=== PATIENT | female | born 1990 | race African-American/Black ===

== ENCOUNTER 2016-05-19 13:16 | Emergency (ER) | payer MEDICAID ==
[~2016-05-19] VITALS: Ht 152.4 cm; Wt 65.0 kg
[~2016-05-19 13:16] MED LIST: AZIT1 PO; MACR100C PO; PREN1CAP20 PO; PROM25TA5 PO
[2016-05-19 13:19] VITALS: BP 181/98; PULSE 62; RESP 17; TEMP 98.1; O2SAT 98
[2016-05-19] MEDS ORDERED: ORPHENADRINE INJ 60 MG/2 ML AMP IM ONE (13:45)
[2016-05-19] MEDS ORDERED: KETOROLAC TROMETHAMINE 60 MG/2 ML (IM) VIAL IM ONE (13:45)
[2016-05-19] MEDS ORDERED: CYCL1TAB29 PO (13:46)
[2016-05-19] MEDS ORDERED: DICL50TA PO (13:46)
--- NOTE | 2016-05-19 13:47 | PD ---
HPI Chief Complaint: Back/ Neck Pain or Injury Time Seen by Provider: 13:42 Travel History International Travel<30 days: No Contact w/Intl Traveler<30days: No Traveled to known affect area: No History of Present Illness HPI 25-year-old female presents to the emergency department for evaluation of thoracic back pain that started yesterday. She states she has a history of scoliosis and has intermittent back pain. She states this consistent with her typical back pain. Patient denies any fevers or chills. She denies any chest pain or shortness of breath. She denies any abdominal pain. No nausea or vomiting. She denies any weakness or syncope. Patient denies any chance of reporting her recent May 10, 2016. Patient is not breast- feeding. Patient denies any headache. Patient's blood pressure is elevated in the emergency department, 181/98. She denies any history of hypertension. She states that she had a normal vaginal delivery at [address] Whiteside. She had no complications other than gestational diabetes. PFSH Past Medical History Diabetes: Yes Patient Takes Glucophage: No Diminished Hearing: No Musculoskeletal: Yes (SCOLIOSIS) ?: Not LMP: RECENT DELIVERY : 3 Para: 2 Social History Alcohol Use: No Tobacco Use: No Substance Use: No Allergies-Medications (Allergen,Severity, Reaction): Coded Allergies: No Known Allergies (Unverified , 05/19/16) Reported Meds & Prescriptions Reported Meds & Active Scripts Active Flexeril (Cyclobenzaprine HCl) 10 Mg Tab 10 Mg PO TID PRN Diclofenac Potassium 50 Mg Tab 50 Mg PO TID PRN Review of Systems Except as stated in HPI: all other systems reviewed are Neg Physical Exam Narrative GENERAL: Well-developed well-nourished female patient, ambulatory. Afebrile. SKIN: Warm and dry. HEAD: Normocephalic. Atraumatic. EYES: No scleral icterus. No injection or drainage. NECK: Supple, trachea midline. No JVD or lymphadenopathy. CARDIOVASCULAR: Regular rate and rhythm without murmurs, gallops, or rubs. RESPIRATORY: Breath sounds equal bilaterally. No accessory muscle use. Lungs sounds are clear to auscultation. GASTROINTESTINAL: Abdomen soft, non-tender, nondistended. MUSCULOSKELETAL: No cyanosis, or edema. Bilateral upper and lower extremity strength 5/5. All extremities are neurovascularly intact. BACK: No obvious deformity. No CVA tenderness. Patient has tenderness over upper thoracic spine. Data Data Last Documented VS Vital Signs Date Time Temp Pulse Resp B/P Pulse Ox O2 Delivery O2 Flow Rate FiO2 05/19/16 15:31 195/110 05/19/16 13:19 98.1 62 17 98 Orders Ketorolac Inj (Toradol Inj) (05/19/16 13:45) Orphenadrine Inj (Norflex Inj) (05/19/16 13:45) Iv Access Insert/Monitor (05/19/16 14:05) Complete Blood Count With Diff (05/19/16 14:05) Basic Metabolic Panel (Bmp) (05/19/16 14:05) Urinalysis - C+S If Indicated (05/19/16 14:05) Ketorolac Inj (Toradol Inj) (05/19/16 14:15) Hepatic Functional Panel (05/19/16 15:32) Labs Laboratory Tests Test 05/19/16 14:25 White Blood Count 6.5 TH/MM3 Red Blood Count 4.36 MIL/MM3 Hemoglobin 11.2 GM/DL Hematocrit 34.9 % Mean Corpuscular Volume 80.2 FL Mean Corpuscular Hemoglobin 25.8 PG Mean Corpuscular Hemoglobin 32.2 % Concent Red Cell Distribution Width 14.8 % Platelet Count 354 TH/MM3 Mean Platelet Volume 9.0 FL Neutrophils (%) (Auto) 46.5 % Lymphocytes (%) (Auto) 44.6 % Monocytes (%) (Auto) 5.4 % Eosinophils (%) (Auto) 3.1 % Basophils (%) (Auto) 0.4 % Neutrophils # (Auto) 3.0 TH/MM3 Lymphocytes # (Auto) 2.9 TH/MM3 Monocytes # (Auto) 0.4 TH/MM3 Eosinophils # (Auto) 0.2 TH/MM3 Basophils # (Auto) 0.0 TH/MM3 CBC Comment DIFF FINAL Differential Comment Urine Color YELLOW Urine Turbidity HAZY Urine pH 7.5 Urine Specific [place] 1.015 Urine Protein NEG mg/dL Urine Glucose (UA) NEG mg/dL Urine Ketones NEG mg/dL Urine Occult Blood MOD Urine Nitrite NEG Urine Bilirubin NEG Urine Urobilinogen 2.0 MG/DL Urine Leukocyte Esterase NEG Urine RBC 18 /hpf Urine WBC 1 /hpf Urine Squamous Epithelial <1 /hpf Cells Urine Amorphous Sediment OCC Microscopic Urinalysis Comment CULT NOT INDICATED Sodium Level 141 MEQ/L Potassium Level 4.3 MEQ/L Chloride Level 104 MEQ/L Carbon Dioxide Level 28.5 MEQ/L Anion Gap 9 MEQ/L Blood Urea Nitrogen 8 MG/DL Creatinine 0.73 MG/DL Estimat Glomerular Filtration 119 ML/MIN Rate Random Glucose 80 MG/DL Calcium Level 9.4 MG/DL MDM Medical Decision Making Medical Screen Exam Complete: Yes Emergency Medical Condition: Yes Medical Record Reviewed: Yes Differential Diagnosis Scoliosis versus chronic back pain versus muscle strain versus muscle spasm Narrative Course 25-year-old female presents to the emergency department for evaluation of upper back pain. She does report having a baby lifting the baby often. She states this is her typical back pain associated with her scoliosis. She denies any new symptoms. Patient's blood pressures elevated the emergency department. She denies any associated complaints. However, this is concerning considering she just gave on May 10, 2016. Her robot programmer is Dr. Whiteside. I consulted my attending physician, Dr. Baker, who recommends lab work , UA, consult her robot programmer. The patient is agreeable to this. CBC shows no acute abnormality, hemoglobin 11.2, hematocrit 34.9. BMP shows no acute abnormality. UA shows moderate occult blood, no protein. I attempted to contact this patient's robot programmer, Dr. Whiteside, but I am unable to get ahold of him. I contacted our OB hospitalist at [phone], Dr. Portillo, and explained situation to him. He states that the patient needs to be transferred to the OB ED for further care and evaluation. LFTs are added on and I called lab to let them know. The patient was transferred to the OB ED. Report is given by the nurse. Madie Aguilar May 19, 2016 13:47
[2016-05-19] MEDS ORDERED: KETOROLAC TROMETHAMINE 30 MG/ML (IVP) VIAL IV PUSH ONE (14:15)
[2016-05-19 14:32] LABS: BASOPHIL % 0.4 % (0.0-2.0); EOSINOPHIL # 0.2 TH/MM3 (0-0.4); EOSINOPHIL % 3.1 % (0.0-4.0); HEMATOCRIT 34.9 % (35.0-46.0); HEMO FLAGS DIFF FINAL; LYMPH % 44.6 % (9.0-44.0); LYMPHOCYTE # 2.9 TH/MM3 (1.0-4.8); MEAN CELL VOLUME 80.2 FL (80.0-100.0); MEAN CORPUSCULAR HEMOGLOBIN 25.8 PG (27.0-34.0); MEAN CORPUSCULAR HGB CONC 32.2 % (32.0-36.0); MONO % 5.4 % (0.0-8.0); NEUT % 46.5 % (16.0-70.0); PLATELET COUNT 354 TH/MM3 (150-450); RED BLOOD COUNT 4.36 MIL/MM3 (4.00-5.30); RED CELL DISTRIBUTION WIDTH 14.8 % (11.6-17.2); WHITE BLOOD COUNT 6.5 TH/MM3 (4.0-11.0)
[2016-05-19 14:42] LABS: BLOOD, URINE MOD (NEG); COMMENT (UR) CULT NOT INDICATED; CULTURE IF INDICATED CULT NOT INDICATED; GLUCOSE,URINE NEG (NEG); KETONE, URINE NEG (NEG); NITRITE,URINE NEG (NEG); PH, URINE 7.5 (5.0-8.5); SQUAMOUS EPITHELIAL CELL URINE <1 /hpf (0-5); URINE COLOR YELLOW (YELLW/STRAW)
[2016-05-19 14:53] LABS: BICARBONATE 28.5 MEQ/L (21.0-32.0); POTASSIUM 4.3 MEQ/L (3.5-5.1)
[2016-05-19 15:31] VITALS: BP 195/110
[2016-05-19 15:56] LABS: INDIRECT BILIRUBIN 0.1 MG/DL (0.0-0.8); TOTAL BILIRUBIN ADULT 0.2 MG/DL (0.2-1.0)
== END 2016-05-19 15:55 | disposition home or self-care (01) ==
LOC: NEPB 13:16
DX: O90.89 Other complications of the puerperium, not elsewhere classified (principal); M54.6 Pain in thoracic spine; R03.0 Elevated blood-pressure reading, without diagnosis of hypertension; M41.9 Scoliosis, unspecified
CPT/HCPCS: 80048; 80076; 81001; 85025; 96372; 96374; 99283; J1885; J2360

== ENCOUNTER 2016-07-18 18:21 | Emergency (ER) | payer OTHER, MEDICAID ==
[~2016-07-18] VITALS: Ht 152.4 cm; Wt 50.0 kg
[2016-07-18 18:22] VITALS: BP 135/80; PULSE 85; RESP 16; TEMP 97.9; O2SAT 99
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
[2016-07-18] MEDS ORDERED: CYCL5TAB PO (18:41)
== END 2016-07-18 19:06 | disposition home or self-care (01) ==
LOC: NEPK 18:21
DX: S16.1XXA Strain of muscle, fascia and tendon at neck level, initial encounter (principal); V49.40XA Driver injured in collision with unspecified motor vehicles in traffic accident, initial encounter; Y92.481 Parking lot as the place of occurrence of the external cause
CPT/HCPCS: 99283

== ENCOUNTER 2016-09-22 13:51 | Emergency (ER) | payer MEDICAID, OTHER ==
[~2016-09-22] VITALS: Ht 167.6 cm; Wt 58.2 kg
[~2016-09-22 13:51] MED LIST changes: -AZIT1 PO; +CYCL5TAB PO; -MACR100C PO; -PREN1CAP20 PO; -PROM25TA5 PO
[2016-09-22 13:52] VITALS: BP 130/76; PULSE 67; RESP 18; TEMP 99.3; O2SAT 100
--- NOTE | 2016-09-22 14:32 | PD ---
Physical Exam Time Seen by Provider: 14:30 Narrative 32 y/o female with back pain. She has been going to physical therapy and reports that it is worse after physical therapy yesterday. Vital signs reviewed. Seen at triage desk. Awaiting bed placement. Data Data Last Documented VS Vital Signs Date Time Temp Pulse Resp B/P Pulse Ox O2 Delivery O2 Flow Rate FiO2 09/22/16 13:52 99.3 67 18 130/76 100 Room Air [facility] Medical Record Reviewed: Yes Supervised Visit with PAIGE: Baldev Byers Sep 22, 2016 14:32
[2016-09-22] MEDS ORDERED: ORPHENADRINE INJ 60 MG/2 ML AMP IM ONE (16:00)
[2016-09-22] MEDS ORDERED: KETOROLAC TROMETHAMINE 60 MG/2 ML (IM) VIAL IM ONE (16:00)
[2016-09-22] MEDS ORDERED: ROBA500T PO (16:00)
[2016-09-22] MEDS ORDERED: IBUP-232 PO (16:00)
--- NOTE | 2016-09-22 16:00 | PD ---
HPI Chief Complaint: Back/ Neck Pain or Injury Time Seen by Provider: 15:58 Travel History International Travel<30 days: No Contact w/Intl Traveler<30days: No Traveled to known affect area: No History of Present Illness HPI 25-year-old female with history of scoliosis presents to [facility] department for evaluation back pain. Patient states she started physical therapy yesterday. Today she has been tight and sore. Denies any injury. No focal deficits weakness. No urinary symptoms. No fever chills. No other symptoms to report. PFSH Past Medical History Diabetes: Yes Diminished Hearing: No Musculoskeletal: Yes (SCOLIOSIS) ?: Not LMP: AUGUST 2016 : 3 Para: 2 Social History Alcohol Use: No Tobacco Use: No Substance Use: No Allergies-Medications (Allergen,Severity, Reaction): Coded Allergies: No Known Allergies (Unverified , 09/22/16) Reported Meds & Prescriptions Reported Meds & Active Scripts Active Robaxin (Methocarbamol) 500 Mg Tab 500 Mg PO QID PRN Ibuprofen 600 Mg Tab 600 Mg PO Q8HR PRN Flexeril (Cyclobenzaprine HCl) 5 Mg Tab 5 Mg PO TID Review of Systems Except as stated in HPI: all other systems reviewed are Neg Physical Exam Narrative GENERAL: Well-nourished, well-developed female patient, ambulatory and in no acute distress SKIN: Focused skin assessment warm/dry. HEAD: Normocephalic. EYES: No scleral icterus. No injection or drainage. NECK: Supple, trachea midline. No JVD or lymphadenopathy. CARDIOVASCULAR: Regular rate and rhythm without murmurs, gallops, or rubs. RESPIRATORY: Breath sounds equal bilaterally. No accessory muscle use. MUSCULOSKELETAL: No cyanosis, or edema. BACK: No midline spinal tenderness. Musculoskeletal tenderness to palpation along the lateral aspect of the back. No CVA tenderness. Data Data Last Documented VS Vital Signs Date Time Temp Pulse Resp B/P Pulse Ox O2 Delivery O2 Flow Rate FiO2 09/22/16 13:52 99.3 67 18 130/76 100 Room Air Orders Ketorolac Inj (Toradol Inj) (09/22/16 16:00) Orphenadrine Inj (Norflex Inj) (09/22/16 16:00) MDM Medical Decision Making Medical Screen Exam Complete: Yes Emergency Medical Condition: Yes Medical Record Reviewed: Yes Differential Diagnosis Muscle strain versus discogenic pain versus radiculopathy versus spasm Narrative Course 25 year female presents versus prominent for evaluation of back pain, exacerbated today after starting physical therapy yesterday. Patient appears without distress. She has no focal deficits or weakness. She'll be treated for her musculoskeletal pain. She is encouraged to ice and/or use warm ice. She agrees return immediately with any acute worsening of symptoms. Diagnosis Primary Impression: Back pain Qualified Code: M54.5 - Bilateral low back pain without sciatica, unspecified chronicity Referrals: Primary Care Physician Patient Instructions: Back Pain (ED), General Instructions Additional Instructions: Ice and/or warm ice may help to alleviate symptoms Continue with physical therapy as already instructed Return immediately with any acute worsening of symptoms Med/Other Pt SpecificInfo: Prescription(s) given Scripts Methocarbamol (Robaxin)500 Mg [id number] Mg PO QID PRN (MUSCLE SPASM) #20 TAB Ref 0 Prov:Trisha Beltran 09/22/16 Ibuprofen 600 Mg [id number] Mg PO Q8HR PRN (PAIN) #30 TAB Ref 0 Prov:Trisha Beltran 09/22/16 Disposition: 01 DISCHARGE HOME Condition: Stable Trisha Beltran Sep 22, 2016 16:00
== END 2016-09-22 16:21 | disposition home or self-care (01) ==
LOC: NEPK 13:51
DX: M54.9 Dorsalgia, unspecified (principal); E11.9 Type 2 diabetes mellitus without complications; M41.9 Scoliosis, unspecified; Z79.899 Other long term (current) drug therapy
CPT/HCPCS: 96372; 99284; J1885; J2360

== ENCOUNTER 2016-10-12 21:39 | Emergency (ER) | payer OTHER ==
[~2016-10-12 21:39] MED LIST changes: +IBUP-232 PO; +ROBA500T PO
[2016-10-12 21:41] VITALS: BP 134/85; PULSE 78; RESP 16; TEMP 98.4; O2SAT 98
[2016-10-12] MEDS ORDERED: CYCL1TAB29 PO (22:33)
[2016-10-12] MEDS ORDERED: DICL75TA PO (22:33)
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
== END 2016-10-12 22:46 | disposition home or self-care (01) ==
LOC: NEPK 21:39
DX: G89.29 Other chronic pain (principal); M54.2 Cervicalgia; M54.9 Dorsalgia, unspecified; F17.210 Nicotine dependence, cigarettes, uncomplicated; E11.9 Type 2 diabetes mellitus without complications
CPT/HCPCS: 99284

== ENCOUNTER 2017-09-05 13:47 | Emergency (ER) | payer MEDICAID ==
[~2017-09-05 13:47] MED LIST changes: -FERRTAB2 PO
[2017-09-05] MEDS ORDERED: LACTATED RINGER'S 1000 ML INJ 1,000 ML IV ONE (14:45)
--- NOTE | 2017-09-05 14:49 | PD ---
HPI Chief Complaint Fluid leakage Date Seen: Sep 05, 2017 (Rebecca Ruelas MD R2) Travel History International Travel<30 Days: No Contact w/Intl Traveler<30Days: No Known Affected Area: No (Rebecca Ruelas MD) History of Present Illness HPI Patient is a 26 year old at 34/0 weeks gestation presents to the [facility] with a chief complaint of fluid leakage that began around 7 AM this morning. Patient also states that she lost her mucous plug. She has been feeling her baby move. She denies vaginal bleeding, foul/increased vaginal discharge, dysuria, fever/chills, nausea/vomiting, diarrhea, headache, chest pain, shortness of breath, blurry vision/spots in her vision, increased leg swelling. She has had right upper quadrant abdominal pain and states that she has contractions now and then when she walks. Notably, patient gets care with [facility] but has not gotten her initial labs done. She had an ultrasound this morning. Per verbal report from OB diagnostics storeroom attendant, baby is 4 lbs. 8 oz. with 17.2 cm of amniotic fluid. Weeks Gestation: 34 Para: 4 : 6 Miscarriage: 0 : 0 (Rebecca Ruelas MD) History Past Medical History Medical History: Denies Significant Hx (Rebecca Ruelas MD) Obstetric History Obstetric History -First : Vaginal delivery at 34-35 weeks -Second : Vaginal delivery, full-term -Third : Vaginal delivery, full-term, at 2 months -Fourth : Vaginal delivery, full-term -Fifth : Vaginal delivery, full-term (Rebecca Ruelas MD) Past Surgical History Surgical History: No Previous Surgery (Rebecca Ruelas MD) Family History Narrative Family History Mom: Diabetes, hypertension No family history of asthma (Rebecca Ruelas MD) Social History Alcohol Use: No Tobacco Use: Yes (1-2 cigarettes per day) Substance Abuse: No (Rebecca Ruelas MD) Allergies-Medications (Allergen,Severity, Reaction): Coded Allergies: No Known Allergies (Unverified Allergy, Unknown, 09/05/17) Home Meds Active Scripts Multi-Vit/Iron-Folic [id number] C (Ferralet) 90-1-0.012-120 mg Tab, 1 TAB PO DAILY, #30 TAB Prov:Rebecca Ruelas MD R2 09/05/17 Cyclobenzaprine (Flexeril) 10 Mg Tab, 10 MG PO TID for Muscle Spasm, #21 TAB Prov:Pascual De Leon MD 10/12/[address] (Diclofenac Sodium DR) 75 Mg Tabdr, 75 MG PO BID, #20 TAB Prov:Pascual De Leon MD 10/12/16 Review of Systems Except as stated in HPI: all other systems reviewed are Neg (Rebecca Ruelas MD R2) Physical Exam Narrative GENERAL: Well-nourished, well-developed patient. SKIN: Warm and dry. HEAD: Normocephalic and atraumatic. EYES: No scleral icterus. No injection or drainage. ENT: No nasal drainage noted. Mucous membranes pink. Airway patent. NECK: Supple, trachea midline. No JVD. CARDIOVASCULAR: Regular rate and rhythm without murmurs, gallops, or rubs. RESPIRATORY: Breath sounds equal bilaterally. No accessory muscle use. ABDOMEN/GI: Abdomen soft, non-tender, bowel sounds present, no rebound, no guarding Gravid to 34 weeks size GENITOURINARY: External Genitalia: intact and normal in appearance Cervix:Midposition Dilatation: 2-3cm Effacement: Thick Station: High Presentation: cephalic Membranes: intact Uterine Contractions: present, irregular, with irritability FHT's: Category: I Baseline: 145 Reactive: multiple accels present Variability: moderate Decels: none EXTREMITIES: No cyanosis or edema. BACK: Nontender without obvious deformity. No CVA tenderness. NEUROLOGICAL: Awake and alert. Motor and sensory grossly within normal limits. Five out of 5 muscle strength in all muscle groups. Normal speech. (Rebecca Ruelas MD R2) Data Data Vital Signs Reviewed: Yes Orders Orders Vital Signs (Adult) .ON ADMISSION (09/05/17 14:24) ^ Labor Status (09/05/17 14:24) Urinalysis - C+S If Indicated (09/05/17 14:24) ^ Non Stress Test (09/05/17 14:24) ^ Hydration (09/05/17 14:24) Ob/Psych Drug Screen, Urine (09/05/17 14:24) Rubella Immune Status (09/05/17 14:37) Hepatitis Profile (09/05/17 14:37) Rapid Plasma Regin (Rpr) W Ttr (09/05/17 14:37) Type And Screen (09/05/17 14:37) Complete Blood Count With Diff (09/05/17 14:37) Special Serology (09/05/17 14:37) Wet Prep Profile (09/05/17 14:38) (Rebecca Ruelas MD R2) MDM Medical Record Reviewed: Yes Interpretation(s) 26 year old at 34/0 weeks gestation presents with suspected leakage of amniotic fluid Plan 1. IUP - heart tones category 1, reassuring -Not in active labor but irregular contractions present -Vaginal exam: 2-3/0%/-3, on repeat check in 1 hour: 3/20/-3, no significant change -Continue routine care 2. Suspected ROM -Membranes intact - amnisure negative -Check UA - not indicative of infection -Check wet prep profile - negative 2. Poor care adherence -Will check labs -CBC sows Hgb of 7.1 - patient reports chronic anemia in all her pregnancies, normally around 7 -Will refer to hematology outpatient - patient will benefit from an iron transfusion -She had been on ferrous sulfate tablets but stopped taking them because they make her nauseous and constipated Plan to discharge home with labor precautions Seen with Dr. Frazier (Rebecca Ruelas MD R2) Attending Attestation pt seen and evaluated with residents (Wilfred Frazier MD) Diagnosis Diagnosis: Primary Impression: labor in third trimester without delivery Additional Impression: Anemia affecting in third trimester Disposition: 01 DISCHARGE HOME Condition: Stable Scripts Multi-Vit/Iron-Folic [id number] C (Ferralet) 90-1-0.012-120 mg Tab 1 TAB PO DAILY, #30 TAB Prov: Rebecca Ruelas MD R2 09/05/17 Patient Instructions: Abdominal Pain in (ED), Premature Rupture of Membranes (ED), Labor (ED) Rebecca Ruelas MD R2 Sep 05, 2017 14:49 Wilfred Frazier MD Sep 05, 2017 18:39
[2017-09-05 15:44] LABS: AUTOMATED NEUTROPHIL # 5.8 TH/MM3 (1.8-7.7); BASOPHIL % 0.2 % (0.0-2.0); EOSINOPHIL # 0.1 TH/MM3 (0-0.4); EOSINOPHIL % 1.5 % (0.0-4.0); HEMOGLOBIN 7.1 GM/DL (11.6-15.3); LYMPH % 27.6 % (9.0-44.0); LYMPHOCYTE # 2.6 TH/MM3 (1.0-4.8); MEAN CELL VOLUME 76.4 FL (80.0-100.0); MEAN CORPUSCULAR HEMOGLOBIN 23.7 PG (27.0-34.0); MEAN PLATELET VOLUME 8.2 FL (7.0-11.0); MONO % 9.2 % (0.0-8.0); MONOCYTE # 0.9 TH/MM3 (0-0.9); NEUT % 61.5 % (16.0-70.0); PLATELET COUNT 351 TH/MM3 (150-450); RED BLOOD COUNT 3.01 MIL/MM3 (4.00-5.30); RED CELL DISTRIBUTION WIDTH 15.7 % (11.6-17.2); WHITE BLOOD COUNT 9.5 TH/MM3 (4.0-11.0)
[2017-09-05 16:01] LABS: BACTERIA, URINE RARE /hpf; BILIRUBIN, URINE NEG (NEG); BLOOD, URINE NEG (NEG); GLUCOSE,URINE NEG (NEG); KETONE, URINE NEG (NEG); NITRITE,URINE NEG (NEG); SQUAMOUS EPITHELIAL CELL URINE 6 /hpf (0-5); URINE COLOR YELLOW (YELLW/STRAW); URINE LEUKOCYTE ESTERASE SMALL (NEG)
[2017-09-05] MEDS ORDERED: FERRTAB2 PO (16:43)
[2017-09-05 22:53] LABS: ALBUMIN 2.7 GM/DL (3.4-5.0); ALT (GPT) 9 U/L (10-53); AST (GOT) 24 U/L (15-37); BICARBONATE 20.2 MEQ/L (21.0-32.0); BLOOD UREA NITROGEN 6 MG/DL (7-18); CHLORIDE 108 MEQ/L (98-107); CREATININE 0.56 MG/DL (0.50-1.00); GLOMERULAR FILTRATION RATE 160 ML/MIN (>89); GLUCOSE,RANDOM 66 MG/DL (74-106); IRON (FE) 16 MCG/DL (50-170); SODIUM (NA) 140 MEQ/L (136-145)
[2017-09-05 23:02] LABS: % SATURATION IRON PROFILE 1.8 % (20-50); ALKALINE PHOSPHATASE 173 U/L (45-117); FERRITIN 6 NG/ML (8-252); TOTAL BILIRUBIN ADULT 0.4 MG/DL (0.2-1.0); TOTAL IRON BINDING CAPACITY 867 MCG/DL (250-450); TOTAL PROTEIN 6.4 GM/DL (6.4-8.2)
[2017-09-06 07:11] LABS: CALCIUM 8.7 MG/DL (8.5-10.1)
[2017-09-06 07:12] LABS: CALCIUM-PROTEIN CORRECTED ND MG/DL (8.5-10.1)
== END 2017-09-05 16:52 | disposition home or self-care (01) ==
LOC: HOBED 13:47
DX: O60.03 Preterm labor without delivery, third trimester (principal); O99.013 Anemia complicating pregnancy, third trimester; D64.9 Anemia, unspecified; O26.893 Other specified pregnancy related conditions, third trimester; R10.11 Right upper quadrant pain; O99.333 Smoking (tobacco) complicating pregnancy, third trimester; F17.210 Nicotine dependence, cigarettes, uncomplicated; Z3A.34 34 weeks gestation of pregnancy
CPT/HCPCS: 36415; 59025; 80053; 80074; 80307; 81001; 82728; 83540; 83550; 84112; 84443; 85025; 86592; 86762; 86850; 86900; 86901; 87210; 87389; 96360; 99284; G0481; G0475

== ENCOUNTER → 2017-09-05 | Outpatient (CLI) | payer MEDICAID ==
[~2017-09-05] MED LIST changes: +CYCL10TA PO; -CYCL5TAB PO; +DICL75TA PO; +FERRTAB2 PO; -IBUP-232 PO; -ROBA500T PO
== END ==
LOC: HPND 08:17
PROVIDERS: ATTEND Obstetrics & Gynecology
DX: O44.43 Low lying placenta NOS or without hemorrhage, third trimester (principal); Z36.3 Encounter for antenatal screening for malformations; O09.33 Supervision of pregnancy with insufficient antenatal care, third trimester
CPT/HCPCS: 76816

== ENCOUNTER 2017-10-03 09:32 | Inpatient (IN) ==
[2017-10-03] MEDS ORDERED: [UNRECOGNIZED DRUG - REMARK] OTHER SCH (10:00)
[2017-10-03] MEDS ORDERED: Oxytocin 30 Units/500ml Premix 30 UNITS/500 ML BAG IV.SIG ONE (10:02)
[2017-10-03] MEDS ORDERED: fentaNYL Citrate Inj 100 MCG/2 ML Ampul IV.PUSH PRN ×2 (10:02)
[2017-10-03] MEDS ORDERED: Naloxone Inj 0.4 MG/ML Vial IV.PUSH PRN ×2 (10:02→15:28)
[2017-10-03] MEDS ORDERED: Sodium Chlor 0.9% Inj 500 ML IV.SIG PRN (10:02)
[2017-10-03] MEDS ORDERED: Sod Chloride 0.9% Inj 1,000 ML IV.CONT PRN (10:02)
[2017-10-03] MEDS ORDERED: Citric Acid/Sodium Citrate Liq 30 ML UDC PO SCH (10:15)
--- NOTE | 2017-10-03 10:21 | ED ---
History of Present Illness Service: OB ED Primary Care Physician: No Primary Care Physician [facility] Chief Complaint: uterine contractions History of Present Illness: Pt is a 27 yo with EDC 10/17/2017. care with [facility]. Presents with strong, regular contractions since 4AM. care previously uncomplicated. No vaginal bleeding or leaking. Active FMs. GBS negative, per patient. Weeks Gestation:: 38 Para: 4 : 6 Total # of Miscarriage(s): 1 - Inpatient Certification I certify that the inpatient services were ordered in accordance with Medicare regulations governing the order. This includes certification that hospital inpatient services are reasonable and necessary and in the case of services not specified as inpatient-only under 42 CFR 419.22(n), that they are appropriately provided as inpatient services in accordance to with the 2-midnight benchmark under 43 CFR 412.3(e) Estimated Total Length of Stay (Days): 3 Plans for Post Hospital Care: Home Review of Systems All other systems reviewed negative except as stated in HPI PMFSH - Medical / Surgical Hx Neg / Unobtainable Surgical History: No Previous Surgery - Medical History Medical History: Medical History (Last Updated 10/03/17 @ 14:40 by Gerald Yeboah MD) Anemia - Tobacco History Second Hand Smoke Exposure: No Tobacco Use In Past 30 Days: No Smoking Status: Never smoker Medications and Allergies Active Medications: Active Medications Citric Acid/Sodium Citrate (Sodium Citrate/Citric Acid Liq) 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[facility] Stop: 10/07/17 10:14 Fentanyl Citrate (Fentanyl Inj) 50 mcg IV.PUSH Q1H PRN PRN Reason: Pain Scale 3 - 5 Fentanyl Citrate (Fentanyl Inj) 100 mcg IV.PUSH Q1H PRN PRN Reason: PAIN SCALE 6 TO 10 Lactated Ringer's (Lr 1000 Ml Inj) 1,000 mls @ 125 mls/hr IV.CONT .Q8H [facility] Lactated Ringer's (Lr 1000 Ml Inj) 1,000 mls @ 3,000 mls/hr IV.SIG UNSCH PRN PRN Reason: compromise or epidural Sodium Chloride (Ns Inj) 500 mls @ 1,000 mls/hr IV.SIG UNSCH PRN PRN Reason: SEE LABEL COMMENTS Sodium Chloride (Ns Inj) 1,000 mls @ 100 mls/hr IV.CONT .Q10H PRN PRN Reason: SEE LABEL COMMENTS Oxytocin (Pitocin 30 Units/Ns 500 Ml Premix) 30 units in 500 mls @ 999 mls/hr IV.SIG BOLUS ONE Stop: 10/03/17 10:32 Lidocaine HCl (Xylocaine 1% Inj) 0.1 ml I-DERMAL PRN PRN PRN Reason: For IV start Stop: 10/06/17 10:01 Lidocaine HCl (Xylocaine 1% Inj) 10 ml INFILTRATN PRN PRN PRN Reason: For episiotomy repair Stop: 10/05/17 10:01 Mineral Oil (Muri-Lube Oil) 10 ml TOPICAL PRN PRN PRN Reason: PRN perineal massage Naloxone HCl (Narcan Inj) 0.1 mg IV.PUSH Q2M PRN PRN Reason: for opiate reversal Allergies Allergy/AdvReac Type Severity Reaction Status Date / Time No Known Allergies Allergy Unverified 10/03/17 14:17 Exam Narrative: FHR Cat 1 baseline 120s, accels. moderate variability, NO decells TOCO q 1-2 minutes SVE 6cm/per L&D RN - Constitutional no acute distress - Routine HEENT Exam Head: Present: normocephalic Eye: Present: PERRL - Routine Neck Exam Present: supple - Routine Respiratory Exam Present: CTA bilaterally - Routine Cardiovascular Exam Present: RRR - Routine Abdominal Exam Present: soft - Detailed Lower Extremity Exam Lower leg: Bilateral normal inspection (wnl) - Routine Skin Exam Present: intact - Routine Neurological Exam Present: alert, oriented X3 Results - Labs CBC & Chem 7: 10/03/17 10:00 Assessment and Plan - Diagnosis (1) 38 weeks gestation of Code(s): Z3A.38 - 38 weeks gestation of Status: Acute (2) Admitted to labor and delivery Code(s): Z78.9 - Other specified health status Status: Acute (3) Anemia affecting Code(s): O99.019 - Anemia complicating , unspecified trimester Status : Chronic - Plan Admit to L&D for labor. Plans epidural. GBS negative. Expectant. Discharge Plan - Discharge Condition Condition: Stable - Physicians Team Primary Care Provider: Primary Care Kaitlin Talamantes Attending Provider: Gerald Yeboah
[2017-10-03 10:26] LABS: Baso % (Auto) 0.3 % (0.0-2.0); Eos # (Auto) 0.1 th/mm3 (0.0-0.4); Eos % (Auto) 0.9 % (0.0-4.0); Hematocrit 25.5 % (35.0-46.0); Hemoglobin 7.7 gm/dL (11.6-15.3); Lymph # (Auto) 3.5 th/mm3 (1.0-4.8); Lymph % (Auto) 28.1 % (9.0-44.0); Mean Corpuscular Hemoglobin 21.9 pg (27.0-34.0); Mean Corpuscular Volume 72.9 fL (80.0-100.0); Mono % (Auto) 8.3 % (0.0-8.0); Neut # (Auto) 7.7 th/mm3 (1.8-7.7); Neut % (Auto) 62.4 % (16.0-70.0); Platelet Count 341 th/mm3 (150-450); White Blood Count 12.3 th/mm3 (4.0-11.0)
[2017-10-03] MEDS ORDERED: fentaNYL 2MCG-Bupiv 0.125% Epi 150 ML EPIDURAL ONE (10:33)
--- NOTE | 2017-10-03 10:33 | P.HPOB ---
Addendum entered and electronically signed by Kathya Singh MD, R1 10/03/17 11:04: Called [facility] about GBS status. Did not receive labs so GBS unknown. Will give antibiotic treatment. Original Note: History of Present Illness Primary Care Physician: No Primary Care Physician History of Present Illness: 27 year old female at 38 weeks presents in labor. She started feeling contractions this morning at 4am. She denies any loss of fluid or vaginal bleeding. She is feeling baby moving. She received care at [facility]. She states that she was GBS (-). She had no complications in this or previous pregnancies. She denies any BEGUM, SOB, urinary symptoms, abdominal pain, or chest pain. She has no other medical conditions. She is interested in an epidural. Weeks Gestation:: 38 Para: 4 : 6 Last menstrual period: 12/27 Total # of Abortions (Spontaneous & Elective): 1 - Inpatient Certification I certify that the inpatient services were ordered in accordance with Medicare regulations governing the order. This includes certification that hospital inpatient services are reasonable and necessary and in the case of services not specified as inpatient-only under 42 CFR 419.22(n), that they are appropriately provided as inpatient services in accordance to with the 2-midnight benchmark under 43 CFR 412.3(e) Estimated Total Length of Stay (Days): 3 Plans for Post Hospital Care: Home Review of Systems Cardiovascular: Denies chest pain Respiratory: Denies pain on inspiration, Denies shortness of breath Gastrointestinal: Denies abdominal pain, Denies vomiting Genitourinary: Denies painful urination, Denies urinary urgency, Denies vaginal discharge Musculoskeletal: Denies body aches Neurologic: Denies headache(s) PMFSH - Medical / Surgical Hx Neg / Unobtainable Medical Problems Denied: Yes Surgical History: No Previous Surgery - Medical History Medical History: Medical History (Last Updated 10/03/17 @ 10:12 by Gerald Yeboah MD) Patient denies medical problems - Tobacco History Tobacco Use In Past 30 Days: No Medications and Allergies Active Medications: Active Medications Citric Acid/Sodium Citrate (Sodium Citrate/Citric Acid Liq) 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 Stop: 10/07/17 10:14 Fentanyl Citrate (Fentanyl Inj) 50 mcg IV.PUSH Q1H PRN PRN Reason: Pain Scale 3 - 5 Fentanyl Citrate (Fentanyl Inj) 100 mcg IV.PUSH Q1H PRN PRN Reason: PAIN SCALE 6 TO 10 Lactated Ringer's (Lr 1000 Ml Inj) 1,000 mls @ 125 mls/hr IV.CONT .Q8H KAYLEE Lactated Ringer's (Lr 1000 Ml Inj) 1,000 mls @ 3,000 mls/hr IV.SIG UNSCH PRN PRN Reason: compromise or epidural Sodium Chloride (Ns Inj) 500 mls @ 1,000 mls/hr IV.SIG UNSCH PRN PRN Reason: SEE LABEL COMMENTS Sodium Chloride (Ns Inj) 1,000 mls @ 100 mls/hr IV.CONT .Q10H PRN PRN Reason: SEE LABEL COMMENTS Oxytocin (Pitocin 30 Units/Ns 500 Ml Premix) 30 units in 500 mls @ 999 mls/hr IV.SIG BOLUS ONE Stop: 10/03/17 10:32 Lidocaine HCl (Xylocaine 1% Inj) 0.1 ml I-DERMAL PRN PRN PRN Reason: For IV start Stop: 10/06/17 10:01 Lidocaine HCl (Xylocaine 1% Inj) 10 ml INFILTRATN PRN PRN PRN Reason: For episiotomy repair Stop: 10/05/17 10:01 Mineral Oil (Muri-Lube Oil) 10 ml TOPICAL PRN PRN PRN Reason: PRN perineal massage Miscellaneous Information [place] [place] 1 each [facility] Naloxone HCl (Narcan Inj) 0.1 mg IV.PUSH Q2M PRN PRN Reason: for opiate reversal Allergies Allergy/AdvReac Type Severity Reaction Status Date / Time No Known Allergies Allergy Unknown Uncoded 09/05/17 15:46 Exam Narrative: GENERAL: Well-nourished, well-developed patient. SKIN: Warm and dry. HEAD: Normocephalic and atraumatic. EYES: No scleral icterus. No injection or drainage. ENT: No nasal drainage noted. Mucous membranes pink. Airway patent. NECK: Supple, trachea midline. No JVD. CARDIOVASCULAR: Regular rate and rhythm without murmurs, gallops, or rubs. RESPIRATORY: Breath sounds equal bilaterally. No accessory muscle use. BREASTS: Bilateral exam showed no masses , no retractions, no nipple discharge. ABDOMEN/GI: Abdomen soft, non-tender, bowel sounds present, no rebound, no guarding GENITOURINARY: Reported by nurse Cervix: Mid position Dilatation: 6 Effacement: 90% Station: -2 Presentation: Vertex Membranes: Intact Uterine Contractions: 2-3 min FHT's: Category: 1 Baseline: 130 Reactive: yes Variability: moderate Decels: No EXTREMITIES: No cyanosis or edema. BACK: Nontender without obvious deformity. No CVA tenderness. NEUROLOGICAL: Awake and alert. Motor and sensory grossly within normal limits. Five out of 5 muscle strength in all muscle groups. Normal speech. Caprini VTE Risk Assessment Caprini VTE Risk Assessment: No/Low Risk (score <= 1) Caprini Risk Assessment Model: Point Value = 1 Point Value = 2 Point Value = 3 Point Value = 5 Age 41-60 Minor surgery BMI > 25 kg/m2 Swollen legs Varicose veins or History of unexplained or recurrent spontaneous Oral contraceptives or hormone replacement Sepsis (< 1 month) Serious lung disease, including pneumonia (< 1 month) Abnormal pulmonary function Acute myocardial infarction Congestive heart failure (< 1 month) History of inflammatory bowel disease Medical patient at bed rest Age 61-74 Arthroscopic surgery Major open surgery (> 45 min) Laparoscopic surgery (> 45 min) Malignancy Confined to bed (> 72 hours) Immobilizing plaster cast Central venous access Age >= 75 History of VTE Family history of VTE Factor V Leiden Prothrombin [id number] Lupus anticoagulant Anticardiolipin antibodies Elevated serum homocysteine Heparin-induced thrombocytopenia Other congenital or acquired thrombophilia Stroke (< 1 month) Elective arthroplasty Hip, pelvis, or leg fracture Acute spinal cord injury (< 1 month) Prophylaxis Regimen: Total Risk Factor Score Risk Level Prophylaxis Regimen 0-1 Low Early ambulation 2 Moderate Order ONE of the following: *Sequential Compression Device (SCD) *Heparin 5000 units SQ BID 3-4 Higher Order ONE of the following medications: *Heparin 5000 units SQ TID *Enoxaparin/Lovenox 40 mg SQ daily (WT < 150 kg, CrCl > 30 mL/min) *Enoxaparin/Lovenox 30 mg SQ daily (WT < 150 kg, CrCl > 10-29 mL/min) *Enoxaparin/Lovenox 30 mg SQ BID (WT < 150 kg, CrCl > 30 mL/min) AND/OR *Sequential Compression Device (SCD) 5 or more Highest Order ONE of the following medications: *Heparin 5000 units SQ TID (Preferred with Epidurals) *Enoxaparin/Lovenox 40 mg SQ daily (WT < 150 kg, CrCl > 30 mL/min) *Enoxaparin/Lovenox 30 mg SQ daily (WT < 150 kg, CrCl > 10-29 mL/min) *Enoxaparin/Lovenox 30 mg SQ BID (WT < 150 kg, CrCl > 30 mL/min) AND *Sequential Compression Device (SCD) Assessment and Plan - Plan 27-year-old female at 38 weeks presenting in labor. Contractions every 2- 3 minutes. Found to be 6 cm dilated. Plan to admit to labor and delivery for anticipated vaginal delivery. -GBS negative. No antibiotics required. -Patient requesting epidural. Plan for AROM afterwards. -Routine laboring orders
[2017-10-03 10:42] LABS: Mean Corpuscular HGB Conc 30.1 % (32.0-36.0)
[2017-10-03] MEDS ORDERED: fentaNYL Citrate Inj 100 MCG/2 ML Ampul EPIDURAL ONE (12:24)
[2017-10-03] MEDS ORDERED: Penicillin G Potassium Inj 5,000,000 UNIT in Sodium Chloride 0.9% Inj 100 ML IV.SIG ONE (12:30)
[2017-10-03] MEDS ORDERED: fentaNYL 2MCG-Bupiv 0.125% Epi 150 ML EPIDURAL PRN (13:00)
[2017-10-03 13:37] LABS: Bacteria,Urine Rare /hpf; Bilirubin,Urine Negative (Negative); Clarity,Urine Clear (Clear); Color,Urine Yellow (Yellw/Straw); Glucose,Urine (UA) Negative (Negative); Leukocyte Esterase,Urine Negative (Negative); Mucus,Urine Few /lpf (Occasional); Nitrite,Urine Negative (Negative); Specific Gravity,Urine 1.016 (1.002-1.035); Squamous Epithelial Cell,Urine 1 /hpf (0-5); Urobilinogen,Urine 4 or Greater mg/dL (Less than 2)
[2017-10-03 13:52] LABS: Amphetamine Urine With Conf Neg (Neg); Benzodiazepine Urine With Conf Neg (Neg)
[2017-10-03] MEDS ORDERED: Penicillin G Potassium Inj 2,500,000 UNIT in Sodium Chlor 0.9% Inj 100 ML IV.SIG SCH (15:00)
[2017-10-03] MEDS ORDERED: Witch Hazel 50%/Glyderin 12.5% 40 Pad Jar RECTAL PRN (15:28)
[2017-10-03] MEDS ORDERED: Zolpidem Tartrate 5 MG Tablet PO PRN (15:28)
[2017-10-03] MEDS ORDERED: Bisacodyl 10 MG Supp RECTAL PRN (15:28)
[2017-10-03] MEDS ORDERED: Benzocaine 20% Top Spray 60 ML Can TOPICAL PRN (15:28)
[2017-10-03] MEDS ORDERED: Acetaminophen 325 MG Tablet PO PRN (15:28)
[2017-10-03] MEDS ORDERED: Oxytocin 30 Units/500ml Premix 30 UNITS/500 ML BAG IV.CONT SCH (15:30)
--- NOTE | 2017-10-03 15:35 | P.OBDELI ---
Weeks Gestation: 38 Artificial Rupture of Membrane: Yes Anesthesia: Epidural Episiotomy: none Vaginal Delivery: Normal Presentation: Occiput anterior Nuchal Cord: None Delayed Cord Clamping (45 sec): Yes Placenta: Spontaneous delivery, Intact Laceration: None Estimated blood loss (mL): 100 Infant: Female Infant Female A Weight: 2.695 kg score (1 min): 8 score (5 min): 9 Additional Information: Head delivered by maternal effort. Nuchal cord absent. Anterior shoulder delivered without complication. Placenta delivered without complication. No lacerations.
[2017-10-03] MEDS ORDERED: Measles/Mumps/Rubella Vaccine Inj 0.5 ML Vial SQ ONE (16:00)
[2017-10-03] MEDS ORDERED: Diphtheria/Tetanus/Pertussis Vaccine Inj 0.5 ML Syringe IM ONE (16:00)
[2017-10-03] MEDS: Ibuprofen 400 MG Tablet PO PRN (16:57)
--- NOTE | 2017-10-04 07:07 | P.PNOB ---
Subjective Post day: 1 Interval history: Patient is a 27-year-old [id number] at 38 weeks and 0 days. Patient is day 1 after . Patient's pain is well-controlled. Patient reports eating and drinking without any nausea or vomiting. Patient reports minimal bleeding. Patient has not passed gas and no bowel movements. Patient is walking without lower extremity pain or shortness of breath. Patient reports desire for contraception unsure and formula-feeding. Objective Vital Signs/I&O: Intake & Output 10/03/17 10/04/17 10/04/17 18:59 06:59 18:59 Weight 57.606 kg Other: Weight On Admission 57.606 kg Result Diagrams: 10/03/17 10:00 Objective Remarks: GENERAL: Well-nourished, well-developed patient. CARDIOVASCULAR: Regular rate and rhythm without murmurs, gallops, or rubs. RESPIRATORY: Breath sounds equal bilaterally. No accessory muscle use. ABDOMEN/GI: Abdomen soft, non-tender. Fundus: Firm, non-tender at umbilicus. EXTREMITIES: No cyanosis or edema, non-tender, without signs of DVT. Medications and IVs: Active Medications Acetaminophen (Tylenol) 650 mg PO Q4H PRN PRN Reason: PAIN SCALE 1 TO 2 Al Hydroxide/Mg Hydroxide (Milk Of Ruel Lijoanne) 30 ml PO Q12H PRN PRN Reason: Mild Constipation Benzocaine (Americaine 20% Top Pax) 1 spray TOPICAL Q4H PRN PRN Reason: For Perineum Discomfort Bisacodyl (Dulcolax Supp) 10 mg RECTAL DAILY PRN PRN Reason: SEVERE CONSITIPATION Ephedrine Sulfate (Ephedrine/Ns Syringe) 10 mg IV.PUSH UNSCH PRN PRN Reason: SEE LABEL COMMENTS Stop: 10/04/17 12:24 Ferrous Sulfate (Ferosul) 325 mg PO DAILY KAYLEE Penicillin G Potassium 2,500, (000 unit/ Sodium Chloride) 100 mls @ 200 mls/hr IV.SIG Q4H KAYLEE Last Admin: 10/03/17 16:56 Dose: Not Given Fentanyl/Bupivacaine/Sodium Chlor (Fentanyl 2 Mcg-Bupiv 0.125% Epi) 150 mls @ 10 mls/hr EPIDURAL UNSCH PRN PRN Reason: for Labor Pain Ibuprofen (Motrin) 800 mg PO Q8H PRN PRN Reason: For cramping Last Admin: 10/03/17 16:57 Dose: 800 mg Lactulose (Lactulose Liq) 30 ml PO DAILY PRN PRN Reason: SEVERE CONSITIPATION Miscellaneous Information (Misc Nursing Information) 1 each OTHER Q15M KAYLEE Miscellaneous Information (Misc Information) 1 each OTHER UNSCH PRN PRN Reason: SEE LABEL COMMENTS Stop: 10/04/17 12:24 Miscellaneous Information (Misc Information) 1 each OTHER UNSCH PRN PRN Reason: SEE LABEL COMMENTS Stop: 10/04/17 12:24 Naloxone HCl (Narcan Inj) 0.1 mg IV.PUSH Q2M PRN PRN Reason: for opiate reversal Ondansetron HCl (Zofran Odt) 4 mg PO Q6H PRN PRN Reason: NAUSEA OR VOMITING Senna/Docusate Sodium (Eneida-Colace) 1 tab PO BID KAYLEE Sennosides (Senokot) 17.2 mg PO Q12H PRN PRN Reason: Moderate Constipation Sodium Chloride (Ns Flush) 2 ml IV.FLUSH BID KAYLEE Sodium Chloride (Ns Flush) 2 ml IV.FLUSH PRN PRN PRN Reason: FLUSH AFTER USING IV ACCESS Witch Yanet/Glycerin (Tucks Pads) 1 applicatio RECTAL QID PRN PRN Reason: HEMORRHOIDS Zolpidem Tartrate (Ambien) 5 mg PO HS PRN PRN Reason: SLEEP Assessment and Plan - Diagnosis (1) Vaginal delivery Code(s): O80 - Encounter for full-term uncomplicated delivery Status: Acute Plan: Patient is a 27-year-old [id number] at 38 weeks and 0 days. Patient is day 1 after . Patient was counseled to do 6 weeks of pelvic rest. Patient was counseled to follow up in 6 weeks. Patient requested follow-up and contraception. --AF VSS --Continue routine care --Motrin and Tylenol when necessary for pain --Encourage OOB --Pelvic rest for 6 weeks will need follow-up appointment at that time. --Contraception: planned to have tubes ligated. Will discuss more tomorrow --Anticipate discharge tomorrow
[2017-10-04] MEDS ORDERED: Ferrous Sulfate 325 MG Tablet PO SCH ×2 (09:00)
[2017-10-04] MEDS: Ibuprofen 400 MG Tablet PO PRN (12:39)
[2017-10-04] MEDS: Senna/Docusate Sodium 8.6/50 MG Tablet PO SCH (21:35)
--- NOTE | 2017-10-05 08:21 | P.PNOB ---
Subjective Post day: 2 Interval history: Patient is a 27-year-old [id number] at 38 weeks and 0 days. Patient is day 2 after . Patient's pain is well-controlled. Patient reports eating and drinking without any nausea or vomiting. Patient reports minimal bleeding. Patient has passed gas and bowel movement. Patient is walking without lower extremity pain or shortness of breath. Patient reports desire for contraception outpatient and formula-feeding. Objective Result Diagrams: 10/03/17 10:00 Objective Remarks: GENERAL: Well-nourished, well-developed patient. CARDIOVASCULAR: Regular rate and rhythm without murmurs, gallops, or rubs. RESPIRATORY: Breath sounds equal bilaterally. No accessory muscle use. ABDOMEN/GI: Abdomen soft, non-tender. Fundus: Firm, non-tender at umbilicus. GENITOURINARY: Light to moderate bleeding. EXTREMITIES: No cyanosis or edema, non-tender, without signs of DVT. Medications and IVs: Active Medications Acetaminophen (Tylenol) 650 mg PO Q4H PRN PRN Reason: PAIN SCALE 1 TO 2 Al Hydroxide/Mg Hydroxide (Milk Of Magnesia Liq) 30 ml PO Q12H PRN PRN Reason: Mild Constipation Benzocaine (Americaine 20% [place]) 1 spray TOPICAL Q4H PRN PRN Reason: For Perineum Discomfort Bisacodyl (Dulcolax Supp) 10 mg RECTAL DAILY PRN PRN Reason: SEVERE CONSITIPATION Ferrous Sulfate (Ferosul) 325 mg PO DAILY [facility] Penicillin G Potassium 2,500, (000 unit/ Sodium Chloride) 100 mls @ 200 mls/hr IV.SIG Q4H [facility] Last Admin: 10/03/17 16:56 Dose: Not Given Fentanyl/Bupivacaine/Sodium Chlor (Fentanyl 2 Mcg-Bupiv 0.125% Epi) 150 mls @ 10 mls/hr EPIDURAL UNSCH PRN PRN Reason: for Labor Pain Ibuprofen (Motrin) 800 mg PO Q8H PRN PRN Reason: FOR CRAMPING Lactulose (Lactulose Liq) 30 ml PO DAILY PRN PRN Reason: SEVERE CONSITIPATION Miscellaneous Information ([facility] [place] [facility]) 1 each OTHER Q15M [facility] Naloxone HCl (Narcan Inj) 0.1 mg IV.PUSH Q2M PRN PRN Reason: for opiate reversal Ondansetron HCl (Zofran Odt) 4 mg PO Q6H PRN PRN Reason: NAUSEA OR VOMITING Senna/Docusate Sodium ([place]-Colace) 1 tab PO BID [facility] Last Admin: 10/04/17 21:35 Dose: 1 tab Sennosides (Senokot) 17.2 mg PO Q12H PRN PRN Reason: Moderate Constipation Sodium Chloride (Ns Flush) 2 ml IV.FLUSH BID KAYLEE Sodium Chloride (Ns Flush) 2 ml IV.FLUSH PRN PRN PRN Reason: FLUSH AFTER USING IV ACCESS Witch Yanet/Glycerin (Tucks Pads) 1 applicatio RECTAL QID PRN PRN Reason: HEMORRHOIDS Zolpidem Tartrate (Ambien) 5 mg PO HS PRN PRN Reason: SLEEP Assessment and Plan - Diagnosis (1) Vaginal delivery Code(s): O80 - Encounter for full-term uncomplicated delivery Status: Acute Plan: Patient is a 27-year-old [id number] at 38 weeks and 0 days. Patient is day 2 after . Patient was counseled to do 6 weeks of pelvic rest. Patient was counseled to follow up in 6 weeks. Patient requested follow-up and contraception. --Continue routine care --Motrin and Tylenol when necessary for pain --Encourage OOB --Pelvic rest for 6 weeks will need follow-up appointment at that time. --Contraception: planned to have tubes ligated. Will decide on contraception method outpatient --discharge today
[2017-10-05] MEDS: Senna/Docusate Sodium 8.6/50 MG Tablet PO SCH (17:10)
== END 2017-10-05 17:05 | disposition home or self-care (01) ==
LOC: HOBED 09:32 → H2E 09:56 → H1EA 17:29
PROVIDERS: ADMIT Obstetrics & Gynecology; ATTEND Obstetrics & Gynecology